=== PATIENT | male | born 1930 | race Caucasian/White ===

== ENCOUNTER → 2018-01-09 | Outpatient (CLI) | payer MEDICARE | LOC: M.RAD 10:05 | DX: M47.897 Other spondylosis, lumbosacral region (principal); M47.896 Other spondylosis, lumbar region; R26.9 Unspecified abnormalities of gait and mobility; R29.6 Repeated falls ==

== ENCOUNTER → 2018-02-11 | Outpatient (CLI) | payer MEDICARE | LOC: M.RAD 09:16 | DX: R06.02 Shortness of breath (principal) ==